=== PATIENT | female | born 1980 | race Caucasian/White ===

== ENCOUNTER → 2020-12-22 | Outpatient (CLI) | payer BC ==
[~2020-12-22] MED LIST: ALLEGRA ALLERG180 MG PO; DOK PLUS TABLE1 EACH PO; FLONASE 0.05% N16 GM; LEVOTHYROXINE150 MCG PO; PROTONIX40 MG PO; SINGULAIR10 MG PO; SYNTHROID75 MCG PO
== END ==
LOC: KOH-I 10:53
DX: F41.9 Anxiety disorder, unspecified (principal); R20.0 Anesthesia of skin; R20.2 Paresthesia of skin; Z87.81 Personal history of (healed) traumatic fracture; Z87.828 Personal history of other (healed) physical injury and trauma
CPT/HCPCS: 70551

== ENCOUNTER → 2021-08-21 | Outpatient (CLI) | payer BC | LOC: EXRD 13:26 | DX: E04.1 Nontoxic single thyroid nodule (principal); E03.9 Hypothyroidism, unspecified | CPT/HCPCS: 76536 ==